=== PATIENT | female | born 1990 | race Caucasian/White ===

== ENCOUNTER 2017-09-20 17:18 | Emergency (ER) | payer OTHER ==
[2017-09-20] MEDS ORDERED: ONDANSETRON 4 MG/2 ML VIAL IVP ONE (17:55)
[2017-09-20] MEDS ORDERED: NS 1,000 ML IV ONE ×2 (17:55→18:08)
--- NOTE | 2017-09-20 18:10 | EDPHY ---
H & P Stated Complaint: Flu sxs x 7 days; started tamilflu today,vomited after taking Time Seen by Provider: 09/20/17 18:03 HPI/ROS: CHIEF COMPLAINT: Flu HISTORY OF PRESENT ILLNESS: Patient is a 27-year-old female who has had flu- like symptoms for 7 days. Today she had a flu test that was positive and was prescribed Tamiflu. Soon after taking it she began vomiting. She states that she has been slightly nauseous for the last several days and even vomited yesterday after drinking a green smoothie. She denies . She denies other significant medical history. She currently is afebrile. No blood in her vomit. No diarrhea. REVIEW OF SYSTEMS: Constitutional: See HPI EENTM: denies: blurred vision, double vision, nose congestion Respiratory: denies: cough, shortness of breath Cardiac: denies: chest pain, irregular heart rate, lightheadedness, palpitations Gastrointestinal/Abdominal: See HPI Genitourinary: denies: dysuria, frequency, hematuria, pain Musculoskeletal: denies: joint pain, muscle pain Skin: denies: lesions, rash, jaundice, bruising Neurological: denies: headache, numbness, paresthesia, tingling, dizziness, weakness Hematologic/Lymphatic: denies: blood clots, easy bleeding, easy bruising Immunologic/allergic: denies: HIV/AIDS, transplant EXAM: GENERAL: Mild distress HEAD: Atraumatic, normocephalic. EYES: Pupils equal round and reactive to light, extraocular movements intact, sclera anicteric, conjunctiva are normal. ENT: TMs normal, nares patent, oropharynx clear without exudates. Dry mucous membranes. NECK: Normal range of motion, supple without lymphadenopathy or JVD. LUNGS: Breath sounds clear to auscultation bilaterally and equal. No wheezes rales or rhonchi. HEART: Regular rate and rhythm without murmurs, rubs or gallops. ABDOMEN: Soft, nontender, normoactive bowel sounds. No guarding, no rebound. No masses appreciated. BACK: No CVA tenderness, no spinal tenderness, step-offs or deformities EXTREMITIES: Normal range of motion, no pitting or edema. No clubbing or cyanosis. NEUROLOGICAL: Cranial nerves II through XII grossly intact. Normal speech, normal gait. 5/5 strength, normal movement in all extremities, normal sensation PSYCH: Normal mood, normal affect. SKIN: Warm, dry, normal turgor, no visible rashes or lesions. Source: Patient Exam Limitations: No limitations - Personal History LMP (Females 10-55): Extended Cycle BCP/Inj Current Tetanus Diphtheria and Acellular Pertussis (TDAP): Yes - Medical/Surgical History Hx Asthma: No Hx Chronic Respiratory Disease: No Hx Diabetes: No Hx Cardiac Disease: No Hx Renal Disease: No Hx Cirrhosis: No Hx Alcoholism: No - Family History Significant Family History: No pertinent family hx - Social History Smoking Status: Never smoked Alcohol Use: Sober Drug Use: None Constitutional: Initial Vital Signs Temperature (C) 36.8 C 09/20/17 17:25 Heart Rate 75 09/20/17 17:25 Respiratory Rate 20 09/20/17 17:25 Blood Pressure 123/76 H 09/20/17 17:25 O2 Sat (%) 98 09/20/17 17:25 O2 Delivery Mode Room Air Allergies/Adverse Reactions: Cephalosporins Allergy (Verified 09/20/17 17:29) sulfamethoxazole [From Bactrim] Allergy (Verified 09/20/17 17:29) trimethoprim [From Bactrim] Allergy (Verified 09/20/17 17:29) Home Medications: Medication Instructions Recorded Control Pills 09/20/17 Metoclopramide [Reglan 10 mg tab 10 mg PO BID PRN 7 Days tab 09/20/17 (RX)] Oseltamivir Phosphate [Tamiflu 75 75 mg PO 09/20/17 mg (*)] Medical Decision Making ED Course/Re-evaluation: 8:15 p.m. the patient continues to feel nauseous and retch. She is not vomiting. We will treat with Reglan. 8:45 p.m. the patient is doing much better with Reglan. She is sleeping but easily arousable. She would like a prescription for this to take home. Differential Diagnosis: Partial list of the Differential diagnosis considered include but were not limited to; medication reaction, influenza, gastritis and although unlikely based on the history and physical exam, I also considered food poisoning, obstruction, appendicitis, biliary disease. I discussed these differential diagnoses and the plan with the patient as well as the usual and expected course. The patient understands that the diagnosis is provisional and that in medicine we are not always correct and that further workup is often warranted. Usual and customary warnings were given. All of the patient's questions were answered. The patient was instructed to return to the emergency department should the symptoms at all worsen or return, otherwise to followup with the physician as we discussed. - Data Points Medications Given: Discontinued Medications Diphenhydramine HCl (Benadryl Injection) 25 mg IVP EDNOW ONE Stop: 09/20/17 20:18 Last Admin: 09/20/17 20:26 Dose: 25 mg Sodium Chloride (Ns) 1,000 mls @ 0 mls/hr IV ONCE ONE PRN Reason: Wide Open Stop: 09/20/17 17:56 Last Admin: 09/20/17 18:00 Dose: 1,000 mls Sodium Chloride (Ns) 1,000 mls @ 0 mls/hr IV EDNOW ONE; Wide Open PRN Reason: Protocol Stop: 09/20/17 18:09 Last Admin: 09/20/17 18:45 Dose: 1,000 mls Metoclopramide HCl (Reglan Injection) 10 mg IVP EDNOW ONE Stop: 09/20/17 20:18 Last Admin: 09/20/17 20:26 Dose: 10 mg Ondansetron HCl (Zofran) 4 mg IVP EDNOW ONE Stop: 09/20/17 17:56 Last Admin: 09/20/17 18:00 Dose: 4 mg Promethazine HCl (Phenergan 25 Mg Prepack #4) 1 btl TAKEHOME EDNOW ONE Stop: 09/20/17 21:14 Last Admin: 09/20/17 21:20 Dose: 1 btl Departure - Departure Disposition: Home, Routine, Self-Care Clinical Impression: Influenza Vomiting Qualifiers: Vomiting type: unspecified Vomiting Intractability: unspecified Nausea presence : unspecified Qualified Code(s): R11.10 - Vomiting, unspecified Condition: Fair Instructions: Promethazine (By injection), Influenza (ED), Acute Nausea and Vomiting (ED) Referrals: NONE *PRIMARY CARE P,. [Primary Care Provider] - As per Instructions Brandie Johnson MD [Medical Doctor] - 2-3 days, call for appt. Prescriptions: Metoclopramide [Reglan 10 mg tab (RX)] 10 mg PO BID PRN 7 Days tab PRN Reason: *Nausea & Vomiting
[2017-09-20] MEDS ORDERED: METOCLOPRAMIDE 10 MG/2 ML VIAL IVP ONE (20:17)
[2017-09-20] MEDS ORDERED: NS 50 ML BAG IV ONE (20:19)
[2017-09-20] MEDS ORDERED: PROMETHAZINE 25 MG PREPACK #4 BTL TAKEHOME ONE (21:13)
[2017-09-20 21:25] VITALS: BP 107/64; PULSE 74; RESP 16; TEMP 98.8; O2SAT 99
== END 2017-09-20 21:25 | disposition home or self-care (01) ==
DX: R11.10 Vomiting, unspecified (principal); J11.1 Influenza due to unidentified influenza virus with other respiratory manifestations; E86.9 Volume depletion, unspecified
CPT/HCPCS: 96374; J1200; J2405; J2765

== ENCOUNTER 2018-11-30 15:39 | Emergency (ER) | payer OTHER ==
[2018-11-30 15:50] VITALS: BP 111/75
--- NOTE | 2018-11-30 16:04 | EDPHY ---
H & P Stated Complaint: hit head standing up into a cabinet, 11/29 +nausea vision Time Seen by Provider: 11/30/18 16:04 HPI/ROS: CHIEF COMPLAINT: Nausea headache after minor head injury HISTORY OF PRESENT ILLNESS: The patient presents the ED with persistent nausea and headache after minor head injury. She reportedly stood up work and struck her head on a cabinet. There is no loss of consciousness. She did not sustain a laceration or hematoma. She denies any acute neck pain or additional traumatic injury. She describes fairly typical post concussive syndrome. REVIEW OF SYSTEMS: A comprehensive 10 point review of systems is otherwise negative aside from elements mentioned in the history of present illness. Source: Patient Exam Limitations: No limitations - Personal History LMP (Females 10-55): 1-7 Days Ago Current Tetanus Diphtheria and Acellular Pertussis (TDAP): Yes - Medical/Surgical History Hx Asthma: No Hx Chronic Respiratory Disease: No Hx Diabetes: No Hx Cardiac Disease: No Hx Renal Disease: No Hx Cirrhosis: No Hx Alcoholism: No Other PMH: depression, anxiety - Social History Smoking Status: Never smoked - Physical Exam Exam: General Appearance: Alert, no distress Head: Atraumatic Eyes: Pupils equal, round, reactive ENT, Mouth: No hemotympanum, no oral trauma Neck: Nontender, trachea midline Respiratory: No chest wall tender, no subcutaneous air, lungs clear bilaterally Cardiovascular: Regular rate and rhythm Abdomen: Abdomen is soft and nontender, pelvis stable Skin: No lacerations, No abrasion Back: No midline T/L/S pain Extremities: Nontender, full range of motion Neurological: A&Ox3, normal motor function, normal sensory exam Constitutional: Initial Vital Signs Temperature (C) 36.6 C 11/30/18 15:46 Heart Rate 76 11/30/18 15:46 Respiratory Rate 16 11/30/18 15:46 Blood Pressure 111/75 11/30/18 15:46 O2 Sat (%) 99 11/30/18 15:46 O2 Delivery Mode Room Air Allergies/Adverse Reactions: Cephalosporins Allergy (Verified 09/20/17 17:29) sulfamethoxazole [From Bactrim] Allergy (Verified 09/20/17 17:29) trimethoprim [From Bactrim] Allergy (Verified 09/20/17 17:29) Home Medications: Medication Instructions Recorded Control Pills 09/20/17 Metoclopramide [Reglan 10 mg tab 10 mg PO BID PRN 7 Days tab 09/20/17 (RX)] Prozac 20 MG (*) 11/30/18 Medical Decision Making ED Course/Re-evaluation: Patient presents to the ED with symptoms of a mild concussion. I do not feel that a CT scan is indicated as she has no clinical evidence of a skull fracture and I doubt intracranial hemorrhage. The patient has been provided customary concussion aftercare instructions. She is advised to follow up with our on- call consumption specialist Dr. Stanley. Departure - Departure Disposition: Home, Routine, Self-Care Clinical Impression: Concussion Condition: Good Instructions: Concussion (ED) Additional Instructions: 1. Take Ibuprofen or Motrin 600 mg by mouth three times a day. 2. Concussion aftercare as directed. 3. Please follow up with Dr. Stanley our concussion specialist for any ongoing symptoms. Referrals: [facility] [Other] - As per Instructions Nimco Stanley MD [Medical Doctor] - As per Instructions
== END 2018-11-30 16:21 | disposition home or self-care (01) ==
DX: S06.0X9A Concussion with loss of consciousness of unspecified duration, initial encounter (principal); W22.8XXA Striking against or struck by other objects, initial encounter; Y99.0 Civilian activity done for income or pay